=== PATIENT | female | born 1990 | race Caucasian/White ===

== ENCOUNTER 2016-04-08 14:48 | Inpatient (IN) | payer OTHER ==
[2016-04-08] VITALS (12 sets, daily range): BP systolic 102–142; BP diastolic 59–80
[~2016-04-08] VITALS: Ht 167.6 cm; Wt 94.0 kg
[~2016-04-08 14:48] MED LIST: AUGM875T27 PO; COMBRESP INH; MAG400TA PO; METR70GEL PV; OSEL75CA PO; PREN27TA3 PO; [UNRECOGNIZED DRUG - CODE] PO
[2016-04-08] MEDS ORDERED: LACTATED RINGER'S 1000 ML IV STA (15:19)
[2016-04-08] MEDS ORDERED: LR 1,000 ML IV SCH (15:19)
[2016-04-08] MEDS ORDERED: OXYTOCIN DRIP 30 UNITS in APPROPRIATE DILUENT 1 EA IV SCH (15:30)
[2016-04-08 15:42] LABS: MEAN CORPUSCULAR HEMOGLOBIN 30.6 pg (27.0-33.0); MEAN CORPUSCULAR HGB CONC 34.3 g/dl (32.0-36.5); MEAN CORPUSCULAR VOLUME 89.1 fl (80.0-96.0); WHITE BLOOD COUNT 16.2 K/mm3 (4.0-10.0)
[2016-04-08] MEDS: ACETAMINOPHEN 500 MG TAB PO PRN (18:48)
[2016-04-08] MEDS ORDERED: PROMETHAZINE INJ 25 MG/ML VIAL (J2550) IV PRN (20:45)
[2016-04-08] MEDS ORDERED: BUTORPHANOL 2 MG/ML INJ (J0595) IV PRN (20:45)
[2016-04-08] MEDS ORDERED: FENTANYL 2MCG/ML ROPIVACAINE 0.2% NACL 250 ML CADD As Ordered ONE (23:24)
[2016-04-09] MEDS ORDERED: ePHEDrine SULFATE 25 MG/5 ML(5MG/ML) SYRINGE As Ordered ONE (00:44)
[2016-04-09] MEDS ORDERED: REFRIGERATOR IV KEYS XX PRN (01:00)
[2016-04-09] MEDS ORDERED: FENTANYL/ROPIVACAINE/NACL CADD 250 ML EPIDURAL SCH (01:00)
[2016-04-09] MEDS ORDERED: EPIDURAL COMMENT XX SCH (01:00)
[2016-04-09] MEDS ORDERED: LACTATED RINGER'S 1000 ML IV PRN (01:00)
[2016-04-09] MEDS ORDERED: ONDANSETRON 4MG/2ML VIAL (J2405) IV PRN (01:00)
[2016-04-09] MEDS ORDERED: NALOXONE INJ 0.4 MG/1 ML VIAL (J2310) IV PRN (01:00)
[2016-04-09] MEDS ORDERED: ePHEDrine SULFATE 25 MG/5 ML(5MG/ML) SYRINGE IV PRN (01:00)
[2016-04-09] MEDS ORDERED: EPIDURAL/PCA KEYS XX PRN (01:00)
[2016-04-09] MEDS ORDERED: diphenhydrAMINE INJ 50MG/ML VIAL (J1200) IV PRN (01:00)
[2016-04-09] MEDS ORDERED: MEASLES,MUMPS,RUBELLA VACCINE INJ (MMR-II) (90707) SC SCH (04:30)
[2016-04-09] MEDS ORDERED: ANUSOL HC CREAM 30GM TOP PRN (04:30)
[2016-04-09] MEDS ORDERED: MOM 30ML SUSPENSION UDC PO PRN (04:30)
[2016-04-09] MEDS ORDERED: RHOGAM 300 MCG (1500 IU) INJ (J2790) IM SCH (04:30)
[2016-04-09] MEDS ORDERED: DIBUCAINE 1% OINTMENT 30GM TOP PRN (04:30)
[2016-04-09] MEDS ORDERED: METHYLERGONOVINE MALEATE 0.2 MG TAB PO PRN (04:30)
[2016-04-09] MEDS ORDERED: DOCUSATE SODIUM 100 MG CAP PO PRN (04:30)
[2016-04-09 05:52] VITALS: BP 130/72
[2016-04-09] MEDS: IBUPROFEN 800 MG TAB PO PRN ×3 (06:46→20:58)
--- NOTE | 2016-04-09 07:36 | HPE ---
DATE OF ADMISSION: 04/08/2016 25-year-old, 2, para 1, estimated date of delivery 04/18/2016, here at 38 weeks 4 days with reports of spontaneous rupture of membranes, clear fluid, since 0800 this morning. Denies regular contractions or bleeding. Fetus is active. Last normal menstrual period 07/13/2015 for expected date of delivery ([facility]UAROD) of 04/18/2016. Sonogram at 9 weeks confirmed the date. Anatomy scan within normal limits except mild bilateral renal hydronephrosis. OBSTETRICAL HISTORY: In 2003, normal spontaneous vaginal of viable male, 38 weeks, 7 pounds 3 ounces, treated as diabetic due to inability to tolerate 3-hour glucose. She is allergic to mushrooms. MEDICAL/SURGICAL HISTORY: Migraines, asthma, knee surgery, attention deficit hyperactivity disorder (ADHD). FAMILY HISTORY: Autism, diabetes and kidney failure. SOCIAL HISTORY: Single. Family is supportive. Reports light tobacco use. Denies alcohol or drugs. OBJECTIVE: Prepregnancy weight 180, total weight gain 49 pounds. O negative, antibody negative. Received RhoGAM. Rubella immune, VDRL, hepatitis B, hepatitis C, HIV, gonorrhea all negative. Initial chlamydia positive, test of cure was negative in October. 1-hour glucose 102 and group B strep is negative. She is in no apparent distress. Vital signs are stable. Heart rate is regular. Respirations are easy. Abdomen is soft, gravid, longitudinal lie. Irregular contractions. heart 145, moderate variability with accelerations. Clear fluid draining per vagina. 4 cm, 100% effaced, per Dr. Donis's office exam. ASSESSMENT: Multiparous at term, premature rupture of membranes (PROM), reassuring maternal/ status. PLAN: Admit. Pitocin augmentation. The patient plans epidural. Anticipate normal spontaneous vaginal . Alert pediatrics to hydronephrosis.
[2016-04-09] MEDS: PRENATAL VITAMIN TAB PO SCH (08:35)
[2016-04-09] MEDS: ACETAMINOPHEN 500 MG TAB PO PRN ×2 (11:20→17:33)
[2016-04-09 18:00] VITALS: BP 128/64
[2016-04-10 06:15] VITALS: BP 132/80
[2016-04-10] MEDS: PRENATAL VITAMIN TAB PO SCH (07:51)
[2016-04-10] MEDS: IBUPROFEN 800 MG TAB PO PRN (07:52)
[2016-04-10] MEDS ORDERED: PRENTAB9 PO (11:31)
[2016-04-10] MEDS ORDERED: ACET50TA PO (11:40)
[2016-04-10] MEDS ORDERED: IBUP-1114 PO (11:40)
--- NOTE | 2016-04-11 01:55 | DN ---
DATE OF SERVICE: 04/09/2016 Artificial rupture of membranes of the forebag at 0157, 6 cm, labored down, viable male delivered left occiput anterior (CHRYSTAL) at 07/05/2015, spontaneous respirations. Transitioned on maternal abdomen. Cord doubly clamped and cut once pulsations ceased. scores were 9 and 10. Placenta Carlson and intact with three-vessel cord at 0410. Fundus firmed with massage and intravenous (IV) Pitocin bolus. Perineum intact. Estimated blood loss 300 mL. weight 8 pounds 15 ounces, 4052 grams. Infant named [place]. Sponge, sharp and instrument count correct. Mother and baby doing well.
== END 2016-04-10 15:20 | disposition home or self-care (01) | DRG 560 ==
LOC: M LDI 14:48 → M OBS 04-09 05:39
PROVIDERS: ADMIT Advanced Practice Midwife; ATTEND Advanced Practice Midwife
PROC: 10E0XZZ Delivery of Products of Conception, External Approach (ICD-10-PCS; principal; 2016-04-09)
PROC: 3E0234Z Introduction of Serum, Toxoid and Vaccine into Muscle, Percutaneous Approach (ICD-10-PCS; 2016-04-09)
DX: O42.02 Full-term premature rupture of membranes, onset of labor within 24 hours of rupture (principal); Z3A.38 38 weeks gestation of pregnancy; O99.334 Smoking (tobacco) complicating childbirth; F17.210 Nicotine dependence, cigarettes, uncomplicated; Z37.0 Single live birth; Z29.11 Encounter for prophylactic immunotherapy for respiratory syncytial virus (RSV)

== ENCOUNTER → 2016-07-04 | Outpatient (CLI) | payer MEDICAID ==
[~2016-07-04] MED LIST changes: +ACET50TA PO; +IBUP-1114 PO; +PRENTAB9 PO
== END ==
LOC: M LAB 08:18
PROVIDERS: ATTEND Nurse Practitioner Family
DX: Z86.32 Personal history of gestational diabetes (principal)

== ENCOUNTER 2016-08-29 22:09 | Emergency (ER) | payer MEDICAID ==
[~2016-08-29] VITALS: Ht 167.6 cm; Wt 127.0 kg
[2016-08-29] MEDS ORDERED: ADDE10CA PO (22:39)
[2016-08-29 23:40] VITALS: BP 133/71
== END 2016-08-30 00:28 | disposition left against medical advice (07) ==
LOC: M ED 23:42
DX: R21 Rash and other nonspecific skin eruption (principal); Z53.21 Procedure and treatment not carried out due to patient leaving prior to being seen by health care provider

== ENCOUNTER 2016-11-21 16:52 | Emergency (ER) | payer MEDICAID ==
[~2016-11-21] VITALS: Ht 165.1 cm; Wt 85.8 kg
[2016-11-21 16:52] VITALS: BP 146/78
[~2016-11-21 16:52] MED LIST changes: +ADDE10CA3 PO
== END 2016-11-21 19:10 | disposition left against medical advice (07) ==
LOC: M ED 16:52
DX: K08.89 Other specified disorders of teeth and supporting structures (principal); Z53.29 Procedure and treatment not carried out because of patient's decision for other reasons

== ENCOUNTER → 2017-08-16 | Outpatient (REF) | payer MEDICAID | LOC: M LAB REF 13:54 | DX: Z12.4 Encounter for screening for malignant neoplasm of cervix (principal) | CPT/HCPCS: 88142 ==

== ENCOUNTER → 2017-11-16 | Outpatient (REF) | payer OTHER, MEDICAID | LOC: M LAB REF 16:59 | DX: N39.0 Urinary tract infection, site not specified (principal) | CPT/HCPCS: 87186 ==

== ENCOUNTER 2018-09-05 08:20 | Emergency (ER) | payer MEDICAID, OTHER ==
[~2018-09-05] VITALS: Ht 167.6 cm; Wt 102.3 kg
[~2018-09-05 08:20] MED LIST changes: -ACET50TA PO; +MAPA500T2 PO; +[UNRECOGNIZED DRUG - CODE] PO; -[UNRECOGNIZED DRUG - CODE] PO
[2018-09-05] MEDS ORDERED: ESCI10TA2 (08:40)
[2018-09-05] MEDS ORDERED: MIRE1IUD IU (08:41)
[2018-09-05] MEDS ORDERED: PERCOCET 5MG/325MG TAB PO ONE (09:30)
--- NOTE | 2018-09-05 09:36 | REP ---
LEFT FOOT, FOUR VIEWS: HISTORY: Trauma. There is a nondisplaced intra-articular fraction of the distal phalange of the 1st digit. There is no dislocation. IMPRESSION: Nondisplaced intra-articular fracture of the 1st distal phalange. Electronically Signed by Alexis Yun MD 09/05/2018 09:44 A
[2018-09-05] MEDS ORDERED: PERC5TAB12 PO (09:49)
[2018-09-05 10:00] VITALS: BP 138/81
== END 2018-09-05 10:12 | disposition home or self-care (01) ==
LOC: M ED 08:20
DX: S92.425A Nondisplaced fracture of distal phalanx of left great toe, initial encounter for closed fracture (principal); W22.8XXA Striking against or struck by other objects, initial encounter; Y92.018 Other place in single-family (private) house as the place of occurrence of the external cause; F17.210 Nicotine dependence, cigarettes, uncomplicated

== ENCOUNTER 2019-02-02 14:18 | Emergency (ER) | payer MEDICAID, OTHER ==
[~2019-02-02] VITALS: Ht 167.6 cm; Wt 98.0 kg
[~2019-02-02 14:18] MED LIST changes: +ESCI10TA2; +MIRE1IUD IU; +PERC5TAB12 PO
[2019-02-02 14:21] VITALS: BP 138/74
== END 2019-02-02 16:58 | disposition left against medical advice (07) ==
LOC: M ED 14:18
DX: Z53.29 Procedure and treatment not carried out because of patient's decision for other reasons (principal)

== ENCOUNTER 2019-04-24 13:19 | Emergency (ER) | payer MEDICAID, OTHER ==
[~2019-04-24] VITALS: Ht 167.6 cm; Wt 99.3 kg
[2019-04-24 13:19] VITALS: BP 141/93
== END 2019-04-24 13:44 | disposition left against medical advice (07) ==
LOC: M ED 13:19
DX: Z53.21 Procedure and treatment not carried out due to patient leaving prior to being seen by health care provider (principal)

== ENCOUNTER 2020-04-02 09:44 | Emergency (ER) | payer MEDICAID, OTHER ==
[~2020-04-02] VITALS: Ht 165.1 cm; Wt 109.7 kg
[2020-04-02] MEDS ORDERED: ACETAMINOPHEN 325 MG TAB PO ONE (10:45)
[2020-04-02] MEDS ORDERED: LIDOCAINE 5% (LIDODERM) PATCH TD ONE (10:45)
--- NOTE | 2020-04-02 11:38 | REP ---
INDICATION: low back pain radiating b/l LE. COMPARISON: None. TECHNIQUE: Axial noncontrast images of the lumbosacral spine from mid T12 through mid sacrum with coronal and sagittal reformations. This CT examination was performed using the following dose reduction techniques: Automated exposure control, adjustment of mA and/or kv according to the patient's size, and use of iterative reconstruction technique. FINDINGS: Alignment and lordosis maintained. Vertebral bodies are intact. Posterior elements and spinous processes are intact. There is no evidence for acute fracture/compression injury or subluxation. The spinal canal is patent. Small posterior disc bulge at the L5-S1 level is suggested without impingement on the exiting nerve roots or narrowing to the neural foramen. The paravertebral soft tissues are normal. IMPRESSION: Small disc bulge at the L5-S1 level. <Electronically signed by Zack Lujan > 04/02/20 0712
[2020-04-02] MEDS ORDERED: predniSONE 20 MG TAB PO ONE (12:15)
[2020-04-02] MEDS ORDERED: KETOROLAC 30 MG/ML 1ML VIAL IM ONE (12:15)
[2020-04-02] MEDS ORDERED: PRED10TA2 PO (12:26)
[2020-04-02] MEDS ORDERED: CYCL5TAB PO (12:26)
[2020-04-02] MEDS ORDERED: LIDO5DIS41 TOP (12:26)
[2020-04-02] MEDS ORDERED: IBUPROFEN 800 MG TAB PO ONE (12:30)
[2020-04-02 13:06] VITALS: BP 159/89
[2020-04-02] MEDS ORDERED: **NOTE PATIENT COMMENT** MISC XX SCH (21:00)
== END 2020-04-02 13:18 | disposition home or self-care (01) ==
LOC: M ED 09:44
DX: S39.012A Strain of muscle, fascia and tendon of lower back, initial encounter (principal); X58.XXXA Exposure to other specified factors, initial encounter; Y92.89 Other specified places as the place of occurrence of the external cause; M51.27 Other intervertebral disc displacement, lumbosacral region; J45.909 Unspecified asthma, uncomplicated; F41.9 Anxiety disorder, unspecified; F90.9 Attention-deficit hyperactivity disorder, unspecified type; Z79.899 Other long term (current) drug therapy; Z97.5 Presence of (intrauterine) contraceptive device; Z88.8 Allergy status to other drugs, medicaments and biological substances; Z91.018 Allergy to other foods; Z91.030 Bee allergy status; F17.210 Nicotine dependence, cigarettes, uncomplicated